=== PATIENT | female | born 1975 | race Caucasian/White ===

== ENCOUNTER 2020-05-08 11:11 | Emergency (ER) | payer BC, OTHER ==
[~2020-05-08] VITALS: Ht 144.8 cm; Wt 55.8 kg
[~2020-05-08 11:11] MED LIST: DILANTIN; HYDROCHLOROTHIAZIDE; TRAZODONE
[2020-05-08] MEDS ORDERED: DILANTIN100 MG PO (11:26)
[2020-05-08] MEDS ORDERED: GABAPENTIN300 MG PO (11:27)
[2020-05-08] MEDS ORDERED: HYDROCHLOROTH12.5 MG PO (11:27)
[2020-05-08] MEDS ORDERED: KETOROLAC TROMETHAMINE 30 MG/ML VIAL IV STA (11:28)
[2020-05-08] MEDS ORDERED: LEVETIRACETAM 500MG/5ML VIAL 1,000 MG in SODIUM CHLORIDE 0.9% 100 ML 100 ML IV ONE (11:45)
[2020-05-08] MEDS ORDERED: LEVETIRACETAM IN NACL (ISO-OS) 100 ML IV ONE (11:45)
[2020-05-08] MEDS ORDERED: SODIUM CHLORIDE 0.9% 500ML 500 ML IV ONE (11:45)
[2020-05-08 11:52] LABS: BASOPHILS % 0.5 % (0.0-1.0); EOSINOPHILS # (AUTO) 0.1 (0.0-0.4); EOSINOPHILS % 1.3 % (0.0-6.0); HEMATOCRIT 33.2 % (34.2-44.1); HEMOGLOBIN 10.2 g/dL (12.0-16.0); LYMPHOCYTES # (AUTO) 0.9 (1.0-3.2); LYMPHOCYTES % 15.8 % (18.0-39.1); MEAN CORPUSCULAR HGB CONC 30.7 g/dL (31-35); MEAN CORPUSCULAR VOLUME 78.1 fL (81-99); MONOCYTES # (AUTO) 0.6 (0.2-0.8); MONOCYTES % 10.1 % (4.4-11.3); NEUTROPHILS % 72.1 % (38.7-80.0); PLATELET COUNT 156 x10e3/uL (140-360); RED BLOOD COUNT 4.25 x10e6/uL (3.6-5.1); RED CELL DISTRIBUTION WIDTH 15.2 % (11.7-14.4)
[2020-05-08 12:10] LABS: INR 1.01; PROTHROMBIN TIME 13.9 seconds (11.9-14.5)
[2020-05-08 12:11] LABS: PARTIAL THROMBOPLASTIN TIME 31.8 seconds (23.8-35.5)
[2020-05-08 12:11] LABS: BILIRUBIN,URINE NEGATIVE (NEGATIVE); CLARITY,URINE CLEAR (CLEAR); COLOR,URINE YELLOW (YELLOW); KETONES,URINE NEGATIVE (NEGATIVE); LEUKOCYTE ESTERASE ,URINE NEGATIVE (NEGATIVE); NITRITE,URINE NEGATIVE (NEGATIVE); PROTEIN,URINE DIPSTICK NEGATIVE (NEGATIVE); URINE UROBILINOGEN 0.2 mg/dL (0.2 - 1)
[2020-05-08 12:13] LABS: BACTERIA,URINE FEW /HPF; EPITHELIAL CELLS,URINE FEW /LPF; WBC,URINE (MAN) 0-5 /HPF (0-5)
--- NOTE | 2020-05-08 12:29 | Diagnostic Imaging Report ---
CT BRAIN WO HISTORY: Seizure COMPARISON: None. TECHNIQUE: Noncontrast axial scans were obtained from skull base to the vertex. Coronal and sagittal reconstructions obtained from the axial data. One or more of the following dose reduction techniques were used: Automated exposure control, adjustment of the mA and/or kV according to patient size, and/or utilization of iterative reconstruction technique. DISCUSSION: Scalp/Skull: Unremarkable. Brain sulci: Appropriate for patient's age. Ventricles: Normal in size and configuration. No hydrocephalus. Extra-axial spaces: No masses or fluid collections. Parenchyma: No abnormal densities. No mass, hemorrhage, or large vascular territory acute infarct. Dural sinuses: No abnormal densities. Sellar/Suprasellar region: Intact. Skull base: Intact. Incidental findings: Nonspecific opacification of the bilateral medial external auditory canals, adjacent to the tympanic membranes, can be correlated with physical exam. IMPRESSION: No intracranial abnormalities. Signed by: Dr. Ford Barreto M.D. on 05/08/2020 12:26 PM
[2020-05-08 12:45] VITALS: BP 119/74
--- NOTE | 2020-05-08 12:49 | Diagnostic Imaging Report ---
EXAMINATION: CHEST SINGLE (PORTABLE) INDICATION: Seizure COMPARISON: None FINDINGS: LINES/TUBES:None LUNGS:The lung volumes are low. Left retrocardiac patchy opacity. PLEURA:No pleural effusion or pneumothorax. MEDIASTINUM:The cardiomediastinal silhouette appears normal in size and shape. BONES/SOFT TISSUES:No acute osseous injury. ABDOMEN:No free air under the diaphragm. Status post cholecystectomy. IMPRESSION: Low lung volumes. Left retrocardiac patchy opacity may represent atelectasis or alternatively superimposed aspiration or pneumonia in the proper clinical setting. Signed by: Dorita Wynne MD on 05/08/2020 12:46 PM
[2020-05-08 12:50] LABS: ALANINE AMINOTRANSFERASE 8 IU/L (0-55); ALBUMIN/GLOBULIN RATIO 1.4 (0.8-2.0); ALKALINE PHOSPHATASE 49 IU/L (40-150); ANION GAP 14.7 mmol/L (8-16); BLOOD UREA NITROGEN 12 mg/dL (7-26); BUN/CREATININE RATIO 18 (6-25); CALCIUM 8.8 mg/dL (8.4-10.2); CARBON DIOXIDE 20 mmol/L (22-29); CHLORIDE 110 mmol/L (98-107); CREATINE KINASE 23 IU/L (29-168); CREATININE, SERUM 0.67 mg/dL (0.57-1.11); EST GLOMERULAR FILTRATION RATE > 60 ML/MIN (60-); GLUCOSE 100 mg/dL (74-118); MAGNESIUM 1.7 MG/DL (1.3-2.1); POTASSIUM 3.7 mmol/L (3.5-5.1); SODIUM 141 mmol/L (136-145)
[2020-05-08] MEDS ORDERED: METOCLOPRAMIDE HCL 10 MG/2ML VIAL IV ONE (13:45)
[2020-05-08] MEDS ORDERED: HYDROCODONE/APAP 7.5MG-325MG 1 EA TAB PO ONE (13:45)
[2020-05-08] MEDS ORDERED: DIPHENHYDRAMINE HCL INJ 50 MG/ML VIAL IV ONE (13:45)
[2020-05-08] MEDS ORDERED: HYDROCODONE/APAP 7.5MG-325MG 1 EA TAB ONE (13:48)
[2020-05-08] MEDS ORDERED: FOSPHENYTOIN 50 MG/ML VIAL IV STA (13:52)
--- NOTE | 2020-05-08 14:04 | Emergency Department Note ---
History of Present Illnes History of Present Illness Chief Complaint: Seizure History of Present Illness This is a 44 year old female PATIENT [facility] AFTER HAVING A SEIZURE AT WORK; PATIENT ALERT AND ORIENTED, RESP EVEN AND NONLABORED. STATES THAT HER NEUROLOGIST RETIRED AND SHE HAS NOT GOTTEN A NEW ONE. Historian: Patient, Template Checker/EMS Arrival Mode: [employer] Account Manager Required: No Radiation: Reports non-radiation Onset quality: sudden Timing of current episode: intermittent Chronicity: recurrent Context: Denies recent illness Relieving factors: none Exacerbating factors: none Associated symptoms: Reports denies other symptoms Past Medical/Family History Physician Review I have reviewed the patient's past medical and family history. Any updates have been documented here. Past Medical History Recent Fever: No Clinical Suspicion of Infectio: No New/Unexplained Change in Ment: No Past Medical History: Seizure Disorder, Lupus Other Medical History: LUPUS, RA RA PULMONARY STENOSIS Past Surgical History: Cholecysctectomy, Other Surgery: OPEN HEART SURGERY, C-SECTIONS Social History Smoking Cessation: Never Smoker Counseling Performed: No Alcohol Use: None Any Illegal Drug Use: No TB Exposure/Symptoms: No Physically hurt or threatened: No Family History Family history of heart diseas: No Other Last Tetanus: <5 YEARS Any Pre-Existing Lines (PICC,: Yes Is patient up to date on immun: No Last Flu: OOD Last Pneumovax: NA Review of Systems Review of Systems Constitutional: Reports no symptoms EENTM: Reports no symptoms Cardiovascular: Reports no symptoms Respiratory: Reports no symptoms Gastrointestinal: Reports no symptoms Genitourinary: Reports no symptoms Musculoskeletal: Reports no symptoms Integumentary: Reports no symptoms Neurological: Reports headache, Reports seizure Psychological: Reports no symptoms Endocrine: Reports no symptoms Hematological/Lymphatic: Reports no symptoms Physical Exam Related Data Allergies: Coded Allergies: onion (Verified Allergy, Severe, ANAPHYLAXIS, 05/08/20) Triage Vital Signs Vital Signs Date Time Temp Pulse Resp B/P (MAP) Pulse Ox O2 Delivery O2 Flow Rate FiO2 05/08/20 11:11 97.9 74 16 148/79 100 Vital signs reviewed: Yes Physical Exam CONSTITUTIONAL Constitutional: Reports well-developed, Reports well-nourished HENT HENT: Reports normocephalic, Reports atraumatic, Reports oropharynx clear/moist, Reports nose normal, Reports other (BILATERAL TM'S OBSCURED BY CERUMEN) HENT L/R: Reports left ext ear normal, Reports right ext ear normal EYES Eyes: Reports PERRL, Reports conjunctivae normal NECK Neck: Reports ROM normal PULMONARY Pulmonary: Reports effort normal, Reports breath sounds normal CARDIOVASCULAR Cardiovascular: Reports regular rhythm, Reports heart sounds normal, Reports capillary refill normal, Reports normal rate GASTROINTESTINAL Abdominal: Reports soft, Reports nontender, Reports bowel sounds normal GENITOURINARY Genitourinary: Reports exam deferred SKIN Skin: Reports warm, Reports dry MUSCULOSKELETAL Musculoskeletal: Reports ROM normal NEUROLOGICAL Neurological: Reports alert, Reports oriented x 3, Reports no gross motor or sensory deficits PSYCHOLOGICAL Psychological: Reports mood/affect normal, Reports judgement normal Results Laboratory Result Diagram: 05/08/20 1145 05/08/20 1145 Laboratory Laboratory Tests Test 05/08/20 11:45 05/08/20 11:24 White Blood Count 5.56 x10e3/uL (4.8-10.8) Red Blood Count 4.25 x10e6/uL (3.6-5.1) Hemoglobin 10.2 g/dL (12.0-16.0) Hematocrit 33.2 % (34.2-44.1) Mean Corpuscular Volume 78.1 fL (81-99) Mean Corpuscular Hemoglobin 24.0 pg (28-32) Mean Corpuscular Hemoglobin Concent 30.7 g/dL (31-35) Red Cell Distribution Width 15.2 % (11.7-14.4) Platelet Count 156 x10e3/uL (140-360) Neutrophils (%) (Auto) 72.1 % (38.7-80.0) Lymphocytes (%) (Auto) 15.8 % (18.0-39.1) Monocytes (%) (Auto) 10.1 % (4.4-11.3) Eosinophils (%) (Auto) 1.3 % (0.0-6.0) Basophils (%) (Auto) 0.5 % (0.0-1.0) Neutrophils # (Auto) 4.0 (2.1-6.9) Lymphocytes # (Auto) 0.9 (1.0-3.2) Monocytes # (Auto) 0.6 (0.2-0.8) Eosinophils # (Auto) 0.1 (0.0-0.4) Basophils # (Auto) 0.0 (0.0-0.1) Absolute Immature Granulocyte (auto 0.01 x10e3/uL (0-0.1) Prothrombin Time 13.9 seconds (11.9-14.5) Prothromb Time International Ratio 1.01 Activated Partial Thromboplast Time 31.8 seconds (23.8-35.5) Sodium Level 141 mmol/L (136-145) Potassium Level 3.7 mmol/L (3.5-5.1) Chloride Level 110 mmol/L (98-107) Carbon Dioxide Level 20 mmol/L (22-29) Anion Gap 14.7 mmol/L (8-16) Blood Urea Nitrogen 12 mg/dL (7-26) Creatinine 0.67 mg/dL (0.57-1.11) Estimat Glomerular Filtration Rate > 60 ML/MIN (60-) BUN/Creatinine Ratio 18 (6-25) Glucose Level 100 mg/dL (74-118) Calcium Level 8.8 mg/dL (8.4-10.2) Magnesium Level 1.7 MG/DL (1.3-2.1) Total Bilirubin 0.5 mg/dL (0.2-1.2) Aspartate Amino Transf (AST/SGOT) 13 IU/L (5-34) Alanine Aminotransferase (ALT/SGPT) 8 IU/L (0-55) Alkaline Phosphatase 49 IU/L (40-150) Creatine Kinase 23 IU/L (29-168) Creatine Kinase MB 0.50 ng/mL (0-5.0) Troponin I 0.009 ng/mL (0-0.300) Total Protein 6.9 g/dL (6.5-8.1) Albumin 4.0 g/dL (3.5-5.0) Globulin 2.9 g/dL (2.3-3.5) Albumin/Globulin Ratio 1.4 (0.8-2.0) Phenytoin (Dilantin) Level < 0.50 ug/mL (10-20) Urine Color Yellow (YELLOW) Urine Clarity Clear (CLEAR) Urine pH 7 (5 - 7) Urine Specific Froid 1.020 (1.010-1.025) Urine Protein Negative (NEGATIVE) Urine Glucose (UA) Negative (NEGATIVE) Urine Ketones Negative (NEGATIVE) Urine Blood Negative (NEGATIVE) Urine Nitrite Negative (NEGATIVE) Urine Bilirubin Negative (NEGATIVE) Urine Urobilinogen 0.2 mg/dL (0.2 - 1) Urine Leukocyte Esterase Negative (NEGATIVE) Urine RBC None /HPF (0-5) Urine WBC 0-5 /HPF (0-5) Urine Epithelial Cells Few /LPF (NONE) Urine Bacteria Few /HPF (NONE) Lab results reviewed: Yes Imaging Imaging results reviewed: Yes Impressions CT BRAIN WO HISTORY: Seizure COMPARISON: None. TECHNIQUE: Noncontrast axial scans were obtained from skull base to the vertex. Coronal and sagittal reconstructions obtained from the axial data. One or more of the following dose reduction techniques were used: Automated exposure control, adjustment of the mA and/or kV according to patient size, and/or utilization of iterative reconstruction technique. DISCUSSION: Scalp/Skull: Unremarkable. Brain sulci: Appropriate for patient's age. Ventricles: Normal in size and configuration. No hydrocephalus. Extra-axial spaces: No masses or fluid collections. Parenchyma: No abnormal densities. No mass, hemorrhage, or large vascular territory acute infarct. Dural sinuses: No abnormal densities. Sellar/Suprasellar region: Intact. Skull base: Intact. Incidental findings: Nonspecific opacification of the bilateral medial external auditory canals, adjacent to the tympanic membranes, can be correlated with physical exam. IMPRESSION: No intracranial abnormalities. Signed by: Dr. Ford Barreto M.D. on 05/08/2020 12:26 PM Assessment & Plan Medical Decision Making MDM SEIZURE ON DILANTIN - CHECK CBC, CHEM, ECG, CT BRAIN, DILANTIN LEVEL - R/O CEREBRAL BLEED, CVA, ELECTROLYTE ABNL, LOW DILANTIN LEVEL, SYNCOPE/DYSRHYTHMIA Reassessment Reassessment DILANTIN LEVEL <0.5 - WILL GIVE FOSPHENYTOIN, REFER TO DR SNEHAL COOLEY, SZ PRECAUTIONS D/W PT AND , GEORGI REPORTS SHE HASN'T BEEN TAKING HER IRMA TIN PRESCRIBED (100 MG TID) Assessment & Plan Final Impression: (1) Seizure disorder (2) Subtherapeutic phenytoin level Depart Disposition: HOME, SELF-CARE Last Vital Signs Date Time Temp Pulse Resp B/P (MAP) Pulse Ox O2 Delivery O2 Flow Rate FiO2 05/08/20 12:45 67 16 100 05/08/20 12:40 119/74 05/08/20 11:11 97.9 Home Meds Reported Medications Hydrochlorothiazide (HYDROCHLOROTHIAZIDE) 12.5 Mg Tablet, 1 TAB PO DAILY 05/08/20 Gabapentin (GABAPENTIN) 300 Mg Capsule, 1000 MG PO BID, #60 CAP 05/08/20 Phenytoin Sodium Extended (DILANTIN) 100 Mg Capsule, 1000 MG PO TID 05/08/20 Discontinued Reported Medications [Trazodone] No Conflict Check 11/10/11 [Hydrochlorothiazide] No Conflict Check 11/10/11 [Dilantin] No Conflict Check 11/10/11 Medications in the ED Ketorolac Tromethamine 30 mg ONCE STAT IV Last administered on 05/08/20at 11:57; Admin Dose 30 MG; Start 05/08/20 at 11:28; Stop 05/08/20 at 11:34; Status DC Levetiracetam 1000 mg/Sodium Chloride 110 ml @ 440 mls/hr ONCE ONCE IV ; Start 05/08/20 at 11:45; Stop 05/08/20 at 11:59; Status Cancel Sodium Chloride 500 ml @ 0 mls/hr Q0M ONCE IV Last administered on 05/08/20at 11:57; Admin Dose 999 MLS/HR; Start 05/08/20 at 11:45; Stop 05/08/20 at 11:46; Status DC Acetaminophen/ Hydrocodone Bitart 1 ea NOW ONCE PO Last administered on 05/08/20at 13:47; Admin Dose 1 EA; Start 05/08/20 at 13:45; Stop 05/08/20 at 13:46; Status DC Metoclopramide HCl 10 mg ONCE ONCE IV Last administered on 05/08/20at 13:47; Admin Dose 10 MG; Start 05/08/20 at 13:45; Stop 05/08/20 at 13:46; Status DC Diphenhydramine HCl 25 mg NOW ONCE IV Last administered on 05/08/20at 13:47; Ad min Dose 25 MG; Start 05/08/20 at 13:45; Stop 05/08/20 at 13:46; Status DC Acetaminophen/ Hydrocodone Bitart 1 ea STK-MED ONCE .ROUTE ; Start 05/08/20 at 13:48; Stop 05/08/20 at 13:43; Status DC JOSH JEFFERSON MD May 08, 2020 14:04
[2020-05-08] MEDS ORDERED: FOSPHENYTOIN 1,000 MG in SODIUM CHLORIDE 0.9% 50ML 50 ML IV ONE (14:45)
== END 2020-05-08 15:12 | disposition home or self-care (01) ==
LOC: ER 11:11
DX: G40.909 Epilepsy, unspecified, not intractable, without status epilepticus (principal); R89.2 Abnormal level of other drugs, medicaments and biological substances in specimens from other organs, systems and tissues; M32.9 Systemic lupus erythematosus, unspecified; M06.9 Rheumatoid arthritis, unspecified
CPT/HCPCS: 36415; 70450; 71045; 80053; 80185; 81001; 82550; 82553; 83735; 84484; 85025; 85610; 85730; 87086; 93005; 99284; J1200; J1885; J2765; J7040; Q2009